=== PATIENT | female | born 2000 | race Hispanic/Latino ===

== ENCOUNTER 2021-10-03 12:33 | Emergency (ER) | payer OTHER ==
[~2021-10-03] VITALS: Ht 154.9 cm; Wt 47.6 kg
[2021-10-03 12:35] VITALS: BP 118/73
[2021-10-03] MEDS ORDERED: ACETAMINOPHEN 500 MG TABLET PO ONE (14:00)
[2021-10-03] MEDS ORDERED: ACET-2247 PO (14:48)
[2021-10-03] MEDS ORDERED: AMOX1TAB16 PO (14:48)
== END 2021-10-03 14:58 | disposition home or self-care (01) ==
LOC: EDH 12:33
DX: S02.2XXA Fracture of nasal bones, initial encounter for closed fracture (principal); S00.83XA Contusion of other part of head, initial encounter; S00.11XA Contusion of right eyelid and periocular area, initial encounter; Y04.0XXA Assault by unarmed brawl or fight, initial encounter; Y93.89 Activity, other specified; Y92.89 Other specified places as the place of occurrence of the external cause; Y99.8 Other external cause status
CPT/HCPCS: 70486; 81025

== ENCOUNTER 2025-02-28 17:42 | Emergency (ER) | payer OTHER ==
[~2025-02-28] VITALS: Ht 157.5 cm; Wt 47.6 kg
[~2025-02-28 17:42] MED LIST: ACET-2247 PO; AMOX1TAB16 PO
--- NOTE | 2025-02-28 17:55 | ERN ---
ED Note History of Present Illness Stated Complaint: NAUSEA AND VOMITING Chief Complaint: Abdominal Pain Time Seen by MD: 17:45 Time Seen by Midlevel: 17:45 Dictation: The patient is a 24-year-old female with no past medical history who presents to the emergency department with complaints of epigastric abdominal pain nausea nonbloody vomiting onset an hour ago after eating chillis. Patient denies any diarrhea or constipation. Denies any fevers but reports chills. Allergies: Coded Allergies: No Known Drug Allergies (Unverified Allergy, Unknown, 10/03/21) Home Meds Active Scripts Acetaminophen (Tylenol) 325 Mg Tablet, 650 MG PO Q4HPRN, #50 TAB Prov:CHLOE HOOPER 10/03/21 Amoxicillin/Potassium Clav (Amox Tr-K Clv 875-125 mg Tab) 1 Each Tablet, 1 EACH PO BIDAC, #20 TAB Prov:CHLOE HOOPER 10/03/21 Past Medical History Past Medical History: No Pertinent History Surgical History: None Family History: Negative Social History: Negative LMP: Feb 12, 2025 RN Note Reviewed/Agreed w/PFSH: Yes Review of System Dictation Constitutional: Negative for fever,chills, and weight loss Eyes: Negative for injury, pain,redness, and discharge ENT: Negative for injury,pain or swelling Cardiovascular: Negative for chest pain, palpitations, and edema Respiratory: Negative for shortness of breath, cough, and wheezing, Abdomen/GI: Negative for diarrhea, and constipation positive for abdominal pain, nausea, vomiting Back: Negative for injury and pain : Negative for injury, bleeding and discharge MS/Extremity: Negative for injury and deformity Skin: Negative for rash, and discoloration Neuro: Negative for headache, weakness, numbness, tingling, and seizure Psych: Negative for suicide ideation, homicidal ideation, and hallucinations Initial Vital Sign VS Vital Signs Date Time Temp Pulse Resp B/P (MAP) Pulse Ox O2 Delivery O2 Flow Rate FiO2 02/28/25 17:44 97.9 84 20 139/78 99 Room Air 02/28/25 18:38 0 21 Physical Exam Dictation Vital Signs reviewed General Appearance: Alert, oriented x 3, no acute distress, well developed, nourished. Head and Face: non-traumatic. Eyes: PERRL, pink conjunctivas, eyelid no trauma, anterior chamber with arcus senilis. Ears: Pinnas intact and no signs of trauma or erythema ear canals clear and no discharge TM no erythema Nose: No discharge, no bleeding. Oropharynx: Mouth normal, tongue pink. pharynx clear,no erythema, tonsils no exudates, no abscesses noted, mucous membrane moist Neck: Supple, non-tender, no thyromegaly, no masses, no JVD, no bruits Breast:Deferred Chest:No tenderness, no crepitus, no paradoxical movement, no retractions Lungs:Clear, well-ventilated, symmetric, no rales, no wheezing, no rhonchi, no stridor, good breath sounds bilaterally Heart: Regular rate, regular rhythm, no murmur, no gallops Vascular: no peripheral edema, Abdomen: Soft, positive bowel sounds, nondistended, no guarding, nontender, no rebound, no masses no hepatomegaly, no splenomegaly, no Tovar's sign, no hernias. Rectal: Deferred Genital: Deferred Neurological: Normal speech, motor function intact, sensory function intact Musculoskeletal: Neck nontender, full range of motion, back nontender, full range of motion, Extremities: nontender, full range of motion Skin: Color pink, dry, no turgor, no rash, no lacerations, no abrasions, no contusions. Lymphatic: Deferred Results (Laboratory/Radiology) Laboratory/Radiology Laboratory Tests Test 02/28/25 18:03 02/28/25 18:40 02/28/25 23:18 White Blood Count 15.7 K/uL (4.8-10.8) H Red Blood Count 4.41 MIL/uL (4.00-5.50) Hemoglobin 13.4 g/dL (12.0-16.0) Hematocrit 37.2 % (36-48) Mean Corpuscular Volume 84.4 fL (79-99) Mean Corpuscular Hemoglobin 30.4 pg (27.0-33.0) Mean Corpuscular Hemoglobin Concent 36.0 g/dL (32.0-36.0) Red Cell Distribution Width 11.6 % (11.0-15.5) Platelet Count 337 K/uL (130-400) Mean Platelet Volume 8.9 fL (7.5-10.5) Immature Granulocyte % (Auto) 0.5 % (0-1) Neutrophils (%) (Auto) 87.1 % (40.0-77.0) H Lymphocytes (%) (Auto) 8.9 % (21.0-51.0) L Monocytes (%) (Auto) 3.2 % (3.0-13.0) Eosinophils (%) (Auto) 0.1 % (0.0-8.0) Basophils (%) (Auto) 0.2 % (0.0-5.0) Neutrophils # (Auto) 13.7 K/uL (1.8-7.7) H Lymphocytes # (Auto) 1.4 K/uL (1.0-4.8) Monocytes # (Auto) 0.5 K/uL (0.1-1.0) Eosinophils # (Auto) 0.01 K/uL (0.00-0.70) Basophils # (Auto) 0.03 K/uL (0.00-0.20) Absolute Immature Granulocyte (auto 0.08 K/uL (0-1) Nucleated Red Blood Cells 0.0 % (0.0-0.19) White Cell Morphology Comment See comments Sodium Level 137 mmol/L (136-145) Potassium Level 2.8 mmol/L (3.5-5.1) *L 3.8 mmol/L (3.5-5.1) Chloride Level 99 mmol/L (101-111) L Carbon Dioxide Level 24 mmol/L (21-32) Blood Urea Nitrogen 8 mg/dL (7-18) Creatinine 0.8 mg/dL (0.5-1.0) Glomerular Filtration Rate Calc 106 mL/min (>90) Random Glucose 119 mg/dL (70-105) H Total Calcium 9.5 mg/dL (8.5-10.1) Magnesium Level 1.40 mg/dL (1.80-2.40) L Total Bilirubin 1.0 mg/dL (0.2-1.0) Direct Bilirubin 0.2 mg/dL (0.0-0.3) Aspartate Amino Transf (AST/SGOT) 16 U/L (10-37) Alanine Aminotransferase (ALT/SGPT) 17 U/L (12-78) Alkaline Phosphatase 74 U/L (50-136) Total Protein 8.2 g/dL (6.0-8.3) Albumin 4.9 g/dL (3.5-5.0) Lipase 48 U/L (16-77) Urine Color LIGHT-YELLOW (YELLOW) Urine Appearance CLEAR (CLEAR) Urine pH 6.5 (5.0-8.0) Urine Specific [place] 1.021 (1.001-1.031) Urine Protein NEGATIVE mg/dL (NEGATIVE) Urine Glucose (UA) NEGATIVE mg/dL (NEGATIVE) Urine Ketones 60 mg/dL (NEGATIVE) H Urine Occult Blood NEGATIVE (NEGATIVE) Urine Nitrate NEGATIVE (NEGATIVE) Urine Bilirubin NEGATIVE mg/dL (NEGATIVE) Urine Urobilinogen 0.2 mg/dL (0.2-1.0) Urine Leukocyte Esterase 250 Jim/uL (NEGATIVE) H Urine RBC 6-10 /HPF (0-1) H Urine WBC 6-10 /HPF (0-1) H Urine Squamous Epithelial Cells MOD /HPF (0-2) Urine Bacteria RARE /HPF (None Seen) Urine HCG, Qualitative NEGATIVE (NEGATIVE) Urine Opiates Screen NEGATIVE (NEGATIVE) Urine Barbiturates Screen NEGATIVE (NEGATIVE) Urine Phencyclidine Screen NEGATIVE (NEGATIVE) Urine Amphetamines Screen NEGATIVE (NEGATIVE) Urine Benzodiazepines Screen NEGATIVE (NEGATIVE) Urine Cocaine Screen NEGATIVE (NEGATIVE) Urine Marijuana (THC) Screen NEGATIVE (NEGATIVE) REASON: Abdominal Pain, upper abd pain ORDERING PHYSICIAN: JAYLON LAWS PROCEDURE: ABD PEL W - CT ABDOMEN/PELVIS W/CONTRAST EXAM: CT Abdomen and Pelvis with IV contrast CLINICAL HISTORY: Pain. TECHNIQUE: Postcontrast thin collimated axial CT images of the abdomen and pelvis were obtained with sagittal and coronal reformatted images also submitted. CT scan is done according to ALARA (As Low As Reasonably Achievable). COMPARISON: None. FINDINGS: The included lungs are clear. No focal abnormality within the liver, gallbladder, pancreas, spleen, adrenals, or kidneys. The urinary bladder is suboptimally distended and grossly unremarkable. 2.2 cm follicular cyst in the right ovary. Unremarkable uterus and left ovary. Diffuse concentric wall thickening in the small and large bowel loops, more pronounced in the jejunal loops, is compatible with an infectious or inflammatory process. No bowel dilatation or obstruction. Unremarkable appendix. There is about 30% to 40% narrowing around the origin of the left common iliac vein secondary to compression between the right common iliac artery and lumbar vertebra, compatible with mild form of May-Thurner syndrome. Grossly unremarkable abdominal aorta and IVC. No pathological lymphadenopathy in the abdomen or pelvis. No ascites or pneumoperitoneum. No acute bony abnormality is evident. IMPRESSIONS: Diffuse concentric wall thickening in the small and large bowel loops, more pronounced in the jejunal loops, is compatible with an infectious or inflammatory process. No bowel dilatation or obstruction. Follicle cyst in the right ovary. There is about 30% to 40% narrowing around the origin of the left common iliac vein secondary to compression between the right common iliac artery and lumbar vertebra, compatible with mild form of May-Thurner syndrome. /[facility] Labs Reviewed?: Yes ED Course ED Course Orders Procedure Category Date Status Time Cbc With Differential LAB 02/28/25 Complete 17:52 ,Urine Test LAB 02/28/25 Complete 17:52 Urinalysis Profile LAB 02/28/25 Complete 17:52 0.9%Nacl 1000ml (Ns PHA 02/28/25 Complete 1000ml) 18:00 Ondansetron 4mg Inj PHA 02/28/25 Complete (Zofran 4mg Inj) 18:00 Pantoprazole 40mg Inj PHA 02/28/25 Complete (Protonix 40mg Inj 18:00 Lipase LAB 02/28/25 Complete 17:52 Basic Metabolic Panel LAB 02/28/25 Complete 17:52 Hepatic Function Panel LAB 02/28/25 Complete 17:52 Magnesium LAB 02/28/25 Complete 18:30 Drug Screen Urine LAB 02/28/25 Complete 18:30 Potassium Bicarb/Cit PHA 02/28/25 Complete Ac 25meq (K-Lyte Ta 18:30 Culture Urine EVIN 02/28/25 In Process 18:57 Magnesium 2gm Premix PHA 02/28/25 In Process 50ml (Magnesium 2gm 19:00 Ct Abdomen/Pelvis CT 02/28/25 Resulted W/Contrast 18:59 Potassium Chloride PHA 02/28/25 Complete 10meq/100ml ([place] 19:00 Metoclopramide 10 PHA 02/28/25 Complete Mg/2 Ml Vial (Reglan 1 19:00 Iohexol (Omnipaque) PHA 02/28/25 Complete 19:30 Potassium Chloride PHA 02/28/25 Complete 10meq/100ml ([place] 20:30 Levofloxacin 750 PHA 02/28/25 Complete Mg/D5w 150 Ml 22:00 Potassium LAB 02/28/25 Complete 22:01 Current Medications Medications (Trade) Dose Ordered Sig/[place] Route PRN Reason Start Time Stop Time Status Last Admin Dose Admin Iohexol (Omnipaque) 75 ml STK-MED ONCE IV 02/28/25 19:30 02/28/25 19:30 DC Levofloxacin/ Dextrose (LEvaquIN 750 MG/ D5W 150 ML) 750 mg ONCE ONCE IV 02/28/25 22:00 02/28/25 22:01 DC 02/28/25 22:01 Magnesium Sulfate 50 ml @ 0 mls/hr PROTOCOL IV 02/28/25 19:00 03/30/25 18:59 02/28/25 20:16 Metoclopramide HCl (regLAN 10MG IV) 10 mg ONCE ONCE IVP 02/28/25 19:00 02/28/25 19:05 DC 02/28/25 19:16 Ondansetron HCl (zoFRAN 4MG INJ) 4 mg ONCE ONCE IVP 02/28/25 18:00 02/28/25 18:01 DC 02/28/25 18:44 Pantoprazole Sodium (PROTonix 40MG INJ) 40 mg ONCE ONCE IVP 02/28/25 18:00 02/28/25 18:01 DC 02/28/25 18:44 Potassium Bicarbonate (K-Lyte Tablet Eff 25 Meq Tablet.eff) 50 meq ONCE ONCE PO 02/28/25 18:30 02/28/25 18:32 DC 02/28/25 18:44 Potassium Chloride 100 ml @ 100 mls/hr ONCE ONCE IV 02/28/25 19:00 02/28/25 19:59 DC 02/28/25 20:37 Potassium Chloride 100 ml @ 100 mls/hr ONCE ONCE IV 02/28/25 20:30 02/28/25 21:29 DC Sodium Chloride 1,000 ml @ 0 mls/hr ONCE ONCE IV 02/28/25 18:00 02/28/25 18:01 DC 02/28/25 18:44 Vital Signs Date Time Temp Pulse Resp B/P (MAP) Pulse Ox O2 Delivery O2 Flow Rate FiO2 02/28/25 21:27 98.1 96 16 130/99 98 Room Air* 0 21 02/28/25 18:38 98.1 82 16 135/74 98 Room Air* 0 21 02/28/25 17:44 97.9 84 20 139/78 99 Room Air Medical Decision Making MDM The patient is a 24-year-old female with no past medical history who presents to the emergency department with complaints of epigastric abdominal pain nausea nonbloody vomiting onset an hour ago after eating chillis. Patient denies any diarrhea or constipation. Denies any fevers but reports chills. CBC showed leukocytosis, no anemia, chemistry showed potassium of 2.8 which improved after potassium administration to a 3.8. Hypomagnesemia which was replaced as well, normal renal function, negative liver enzymes, negative lipase, urinalysis showed positive leukocyte esterase, negative drug screen, CT abdomen pelvis showed diffuse constant drink wall thickening in the small and large bowel loops compatible with infectious or inflammatory process, no dilation or obstruction. Patient abdominal pain improved. Tolerated p.o. intake after medication administration. On physical exam patient is in no acute distress, nontoxic appearance, we will discharged to follow up with PCP. Disposition delayed due to replacement of electrolytes and reassessment. Differential diagnosis: Gastritis, gastroenteritis, pancreatitis, electrolyte imbalance Need for hospitalization: Patient does not meet criteria for hospitalization. There are no social concerns with this patient. DX & DISP Disposition: Discharge Departure Impression: Primary Impression: Gastroenteritis Additional Impressions: Hypokalemia, Hypomagnesemia, UTI (urinary tract infection), May-Thurner syndrome Condition: Stable Scripts Levofloxacin (Levaquin 750Mg Tabs) 750 Mg Tablet 750 MG PO DAILY for 5 Days, #5 TAB 0 Refills Prov: JAYLON LAWS [facility] 02/28/25 Additional Instructions: Your laboratory showed that your electrolytes potassium and magnesium were low and they were replaced with a improvement. You received antibiotics for an abdominal infection. Please follow up with your primary doctor in 1-2 days. Take your medications as prescribed. Start with a bland diet and avoid foods that exacerbate your symptoms. If anything worsens please return to ER. FOLLOW-UP WITH PRIMARY CARE PROVIDER IN 1 TO 2 DAYS. TAKE MEDICATIONS DIRECTED HERE IN THE EMERGENCY ROOM. OKAY TO CONTINUE HOME MEDICATIONS UNLESS OTHERWISE DISCUSSED DURING YOUR VISIT IN THE EMERGENCY ROOM TODAY. RETURN TO YOUR NEAREST EMERGENCY ROOM IF SYMPTOMS WORSEN OR IF THERE IS NO IMPROVEMENT. CALL 911 IF YOU NEED IMMEDIATE ASSISTANCE. TAKE TYLENOL [id number] NEEDED AND IF NO CONTRAINDICATIONS ARE PRESENT. INCREASE ORAL HYDRATION. A WOUND CULTURE OR URINE CULTURE WAS ORDERED HERE IN THE EMERGENCY ROOM DEPARTMENT PLEASE FOLLOW-UP WITH PRIMARY CARE PROVIDER AND ADVISE THEM TO GET REPEAT PORTS FROM OUR FACILITY. IF YOU HAD ANY JONAH WRAP/SPLINTS THAT WERE APPLIED HERE, PLEASE DO NOT REMOVE THEM UNTIL YOU SEE YOUR PRIMARY CARE OR SPECIALTY. Referrals: SELF,REFERRAL (PCP) Time of Disposition: 23:35 I have reviewed the case, and I agree with, Diagnosis and Plan JAYLON LAWS METHODS SPECIALIST Feb 28, 2025 17:55
[2025-02-28 18:10] LABS: IMMATURE GRANULOCYTE ABSOLUTE 0.08 K/uL (0-1); NUCLEATED RED BLOOD CELLS 0.0 % (0.0-0.19); PLATELET COUNT (AUTO) 337 K/uL (130-400); RED BLOOD CELL COUNT(AUTO) 4.41 MIL/uL (4.00-5.50); RED CELL DISTRIBUTION WIDTH 11.6 % (11.0-15.5); WHITE BLOOD COUNT (AUTO) 15.7 K/uL (4.8-10.8)
[2025-02-28 18:27] LABS: ASPARTATE AMINOTRANSFERASE 16.0 U/L (10-37); CREATININE 0.8 mg/dL (0.5-1.0); GLOMERULAR FILTR. RATE CALC 106.0 mL/min (>90); GLUCOSE,RANDOM 119.0 mg/dL (70-105); SODIUM SERUM 137.0 mmol/L (136-145); TOTAL PROTEIN, SERUM 8.2 g/dL (6.0-8.3); UREA NITROGEN, BLOOD 8.0 mg/dL (7-18)
[2025-02-28] MEDS: 0.9%NACL 1000ML 1,000 ML IV ONE (18:44)
[2025-02-28 18:53] LABS: APPEARANCE,URINE CLEAR (CLEAR); GLUCOSE, URINE (UA) NEGATIVE (NEGATIVE); LEUKOCYTE ESTERASE ,URINE 250 Leu/uL (NEGATIVE); NITRATE,URINE NEGATIVE (NEGATIVE); OCCULT BLOOD,URINE NEGATIVE (NEGATIVE)
[2025-02-28 18:54] LABS: HCG,QUALITATIVE URINE NEGATIVE (NEGATIVE)
[2025-02-28 18:57] LABS: ADD UA MICROSCOPIC YES
[2025-02-28 19:00] LABS: AMPHET/METH SCREEN,URINE NEGATIVE (NEGATIVE); BARBITURATE SCREEN, URINE NEGATIVE (NEGATIVE); CANNABINOID SCREEN,URINE NEGATIVE (NEGATIVE); COCAINE SCREEN,URINE NEGATIVE (NEGATIVE); SQUAMOUS EPITHELIAL CELL,UR MOD /HPF (0-2)
--- NOTE | 2025-02-28 19:13 | NUR ---
K AND MAG CONTENT DEVELOPMENT SPECIALIST PENDING ROOM ASSIGNMENT UNABLE TO PROVIDE MEDS IN [facility]
[2025-02-28] MEDS ORDERED: IOHEXOL-350 75 ML VIAL IV ONE (19:30)
[2025-02-28] MEDS: MAGNESIUM 2GM PREMIX 50ML 50 ML IV SCH (20:16)
--- NOTE | 2025-02-28 21:21 | HMCIMG ---
EXAM: CT Abdomen and Pelvis with IV contrast CLINICAL HISTORY: Pain. TECHNIQUE: Postcontrast thin collimated axial CT images of the abdomen and pelvis were obtained with sagittal and coronal reformatted images also submitted. CT scan is done according to ALARA (As Low As Reasonably Achievable). COMPARISON: None. FINDINGS: The included lungs are clear. No focal abnormality within the liver, gallbladder, pancreas, spleen, adrenals, or kidneys. The urinary bladder is suboptimally distended and grossly unremarkable. 2.2 cm follicular cyst in the right ovary. Unremarkable uterus and left ovary. Diffuse concentric wall thickening in the small and large bowel loops, more pronounced in the jejunal loops, is compatible with an infectious or inflammatory process. No bowel dilatation or obstruction. Unremarkable appendix. There is about 30% to 40% narrowing around the origin of the left common iliac vein secondary to compression between the right common iliac artery and lumbar vertebra, compatible with mild form of May-Thurner syndrome. Grossly unremarkable abdominal aorta and IVC. No pathological lymphadenopathy in the abdomen or pelvis. No ascites or pneumoperitoneum. No acute bony abnormality is evident. IMPRESSIONS: Diffuse concentric wall thickening in the small and large bowel loops, more pronounced in the jejunal loops, is compatible with an infectious or inflammatory process. No bowel dilatation or obstruction. Follicle cyst in the right ovary. There is about 30% to 40% narrowing around the origin of the left common iliac vein secondary to compression between the right common iliac artery and lumbar vertebra, compatible with mild form of May-Thurner syndrome. /[place]
--- NOTE | 2025-02-28 22:40 | NUR ---
SECOND 10 MEQ K HELD PENDING RECHECK DUE TO PREV ORAL ATTEMPT CAUSED NAUSEA HOWEVER AFTER RECHECK ORDER MAY BE CHANGED TO ORAL INSTEAD OF IV REPLACEMENT DEPENDING ON RESULT
--- NOTE | 2025-02-28 23:15 | NUR ---
K DRAWN AT THIS TIME
--- NOTE | 2025-02-28 23:34 | NUR ---
TRANSFERED CARE TO [facility] AT THIS TIME
[2025-02-28] MEDS ORDERED: LEVO750T68 PO (23:36)
[2025-02-28 23:52] VITALS: BP 132/88; PULSE 88; RESP 16; TEMP 98; O2SAT 99
== END 2025-02-28 23:56 | disposition home or self-care (01) ==
LOC: EDH 17:42
DX: K52.9 Noninfective gastroenteritis and colitis, unspecified (principal); E87.6 Hypokalemia; E83.42 Hypomagnesemia; N39.0 Urinary tract infection, site not specified
CPT/HCPCS: 99285; 74177; 96365; 96375; 96366; 80076; 83735; 80048; 80305; 83690; 85025; 87086; 81025; 36415; 96368; 81001; 84132; J3475; J1956; J7030; J2405; J2470; J2765; Q9967; J3480